=== PATIENT | female | born 2000 | race Caucasian/White ===

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

== ENCOUNTER → 2023-02-07 | Outpatient (REF) | payer OTHER, MEDICAID ==
[2023-02-07 13:12] LABS: APPEARANCE, URINE CLOUDY (CLEAR); BACTERIA, URINE AUTO 1+ (NEGATIVE); BILIRUBIN, URINE AUTO NEGATIVE (NEGATIVE); BLOOD, URINE BLOOD 2+ (NEGATIVE); COLOR, URINE YELLOW (YELLOW); GLUCOSE, URINE (UA) AUTO NEGATIVE (NEGATIVE); KETONE, URINE AUTO NEGATIVE (NEGATIVE); LEUKOCYTE ESTERASE, URINE AUTO 3+ (NEGATIVE); MUCUS, URINE SMALL (NEGATIVE); NITRITE, URINE AUTO NEGATIVE (NEGATIVE); PROTEIN, URINE AUTO NEGATIVE (NEGATIVE); RBC, URINE AUTO 9 /HPF (0-3); SPECIFIC GRAVITY URINE AUTO 1.021 (1.002-1.035); SQUAMOUS EPITHELIAL CELL UR AU 9 /HPF (0-6); UROBILINOGEN, URINE AUTO 0.2 mg/dL (0.0-2.0); WBC, URINE AUTO TNTC /HPF (0-3)
== END ==
LOC: M LAB REF 12:30
PROVIDERS: ATTEND Nurse Practitioner Family
DX: R39.15 Urgency of urination (principal)

== ENCOUNTER → 2023-02-28 | Outpatient (REF) | payer OTHER, MEDICAID | LOC: M SFHCWAGY 17:06 | PROVIDERS: ATTEND Nurse Practitioner Family | DX: R30.0 Dysuria (principal) ==

== ENCOUNTER 2023-03-15 14:36 | Emergency (ER) | payer MEDICAID, OTHER ==
[~2023-03-15] VITALS: Ht 162.6 cm; Wt 76.0 kg
[2023-03-15] MEDS ORDERED: IBUP200C25 PO (15:16)
[2023-03-15 17:07] LABS: CHLAMYDIA DNA AMPLIFICATION NEGATIVE (NEGATIVE); GC DNA AMPLIFICATION NEGATIVE (NEGATIVE)
[2023-03-15 18:17] VITALS: BP 122/72; TEMP 97.9; O2SAT 97
== END 2023-03-15 18:23 | disposition home or self-care (01) ==
LOC: M ED 14:36
DX: T83.39XA Other mechanical complication of intrauterine contraceptive device, initial encounter (principal); R10.2 Pelvic and perineal pain

== ENCOUNTER → 2023-04-17 | Outpatient (REF) | payer OTHER, MEDICAID ==
[~2023-04-17] MED LIST: IBUP200C25 PO
== END ==
LOC: M SFHCDERM 17:36
PROVIDERS: ATTEND Physician Assistant
DX: D22.62 Melanocytic nevi of left upper limb, including shoulder (principal)

== ENCOUNTER 2023-05-27 12:24 | Emergency (ER) | payer MEDICAID ==
[~2023-05-27] VITALS: Ht 162.6 cm; Wt 81.7 kg
[2023-05-27 19:15] VITALS: BP 129/72; TEMP 98; O2SAT 99
[2023-05-28 16:36] LABS: CHLAMYDIA DNA AMPLIFICATION NEGATIVE (NEGATIVE); GC DNA AMPLIFICATION NEGATIVE (NEGATIVE)
== END 2023-05-27 19:20 | disposition home or self-care (01) ==
LOC: M ED 12:24
DX: R10.2 Pelvic and perineal pain (principal)

== ENCOUNTER → 2023-05-29 | Outpatient (CLI) | payer OTHER | LOC: M RAD 15:10 | PROVIDERS: ATTEND Family Medicine | DX: R39.15 Urgency of urination (principal) ==

== ENCOUNTER → 2023-06-06 | Outpatient (CLI) | payer OTHER ==
[~2023-06-06] MED LIST changes: +ISOVUE-370 76% 100ML VIAL As Ordered ONE
== END ==
LOC: M RAD 07:36
PROVIDERS: ATTEND Family Medicine
DX: R10.2 Pelvic and perineal pain (principal); R39.15 Urgency of urination
CPT/HCPCS: 72193; Q9967

== ENCOUNTER → 2023-06-19 | Outpatient (REF) | payer OTHER, MEDICAID ==
[~2023-06-19] MED LIST changes: -ISOVUE-370 76% 100ML VIAL As Ordered ONE
[2023-06-19 13:52] LABS: APPEARANCE, URINE HAZY (CLEAR); BACTERIA, URINE AUTO NEGATIVE (NEGATIVE); BILIRUBIN, URINE AUTO NEGATIVE (NEGATIVE); BLOOD, URINE BLOOD 1+ (NEGATIVE); COLOR, URINE YELLOW (YELLOW); GLUCOSE, URINE (UA) AUTO NEGATIVE (NEGATIVE); KETONE, URINE AUTO NEGATIVE (NEGATIVE); LEUKOCYTE ESTERASE, URINE AUTO NEGATIVE (NEGATIVE); NITRITE, URINE AUTO NEGATIVE (NEGATIVE); PROTEIN, URINE AUTO NEGATIVE (NEGATIVE); RBC, URINE AUTO 0 /HPF (0-3); SPECIFIC GRAVITY URINE AUTO 1.026 (1.002-1.035); SQUAMOUS EPITHELIAL CELL UR AU 6 /HPF (0-6); UROBILINOGEN, URINE AUTO 0.2 mg/dL (0.0-2.0); WBC, URINE AUTO 2 /HPF (0-3)
== END ==
LOC: M SMT 13:07
PROVIDERS: ATTEND Specialist
DX: N34.2 Other urethritis (principal)

== ENCOUNTER → 2023-07-31 | Outpatient (CLI) | payer OTHER ==
[2023-07-31 19:03] LABS: BASO % 0.3 % (0.0-1.0); EOS # 0.3 10^3/uL (0.0-0.5); HEMATOCRIT 39.1 % (36.0-47.0); LYMPH # 2.8 10^3/uL (1.5-5.0); LYMPH % 31.9 % (24.0-44.0); MEAN CORPUSCULAR HEMOGLOBIN 30.1 pg (27.0-33.0); MEAN CORPUSCULAR HGB CONC 33.2 g/dl (32.0-36.5); MEAN CORPUSCULAR VOLUME 90.5 fl (80.0-96.0); MONO # 0.9 10^3/uL (0.0-0.8); MONO % 9.7 % (2.0-8.0); NEUTROPHILS # 4.8 10^3/uL (1.5-8.5); NEUTROPHILS % 54.9 % (36.0-66.0); PLATELET COUNT, AUTOMATED 255 10^3/uL (150-450); RED BLOOD COUNT 4.32 10^6/uL (4.00-5.40); WHITE BLOOD COUNT 8.8 10^3/uL (4.0-10.0)
[2023-07-31 19:42] LABS: ALKALINE PHOSPHATASE 61 U/L (46-116); ALT/SGPT 14 U/L (7.0-40); AST/SGOT 11 U/L (<34); BILIRUBIN,TOTAL 0.3 MG/DL (0.3-1.2); BLOOD UREA NITROGEN 21 MG/DL (9-23); CALCIUM LEVEL 9.9 MG/DL (8.5-10.1); CARBON DIOXIDE LEVEL 27 MMOL/L (20-31); CHLORIDE LEVEL 107 MMOL/L (98-107); CREATININE FOR GFR 0.78 MG/DL (0.55-1.30); GLUCOSE, FASTING 93 MG/DL (60-100); POTASSIUM SERUM 4.3 MMOL/L (3.5-5.1); SODIUM LEVEL 137 MMOL/L (136-145); TOTAL PROTEIN 7.2 G/DL (5.7-8.2)
[2023-07-31 19:44] LABS: FOLLICLE STIMULATING HORMONE 3.7 mIU/ML; LUTEINIZING HORMONE 13.4 mIU/ML; PROLACTIN 13.96 NG/ML
[2023-07-31 19:45] LABS: THYROID STIMULATING HORMONE 1.134 uIU/ML (0.48-4.17)
[2023-07-31 20:41] LABS: HCG, SERUM QUALITATIVE NEGATIVE (NEGATIVE)
== END ==
LOC: M WUC 15:30
PROVIDERS: ATTEND Family Medicine
DX: N91.2 Amenorrhea, unspecified (principal)

== ENCOUNTER → 2023-12-10 | Outpatient (REF) | payer OTHER, MEDICAID | LOC: M SFHCWAGY 17:45 | PROVIDERS: ATTEND Nurse Practitioner Family | DX: Z12.4 Encounter for screening for malignant neoplasm of cervix (principal) ==